=== PATIENT | female | born 1940 | race Caucasian/White ===

== ENCOUNTER 2016-07-30 10:01 | Inpatient (IN) | payer MEDICARE, BC ==
[2016-07-30] MEDS ORDERED: TENORMIN25 M1 PO (10:15)
[2016-07-30 10:58] LABS: BASO % 0.1 % (0-2); HCT-HEMATOCRIT 44.6 % (34.0-49.0); HGB-HEMOGLOBIN 15.3 gm/dl (12.0-15.5); IMMATURE GRANULOCYTES ABSOLUTE 0.11 tho/cmm (0-0.03); IMMATURE GRANULOCYTES PERCENT 0.6 % (0-0.3); LYMPH % 3.5 % (20-45); LYMPH ABSOLUTE COUNT 0.6 tho/cmm (0.8-4.5); MCHC MEAN CORPUSCULAR HGB CONC 34.3 % (32.0-36.0); MCV (MEAN CELL VOLUME) 84.6 fl (82.0-96.0); MEAN PLATELET VOLUME 10.3 cmc (9.4-12.4); MONO % 4.7 % (0-12); MONOCYTE ABSOLUTE COUNT 0.8 tho/cmm (0.0-1.2); NEUTROPHIL ABSOLUTE COUNT 15.5 tho/cmm (1.6-8.0); NEUTROPHIL-AUTOMATED 15.5 tho/cmm (1.6-8.0); NEUTROPHILS % 91.1 % (40-80); PLATELET COUNT 184 tho/cmm (150-450); RED BLOOD COUNT 5.27 mil/cmm (4.00-5.20); RED CELL DISTRIBUTION WIDTH 13.7 % (12.4-16.4)
[2016-07-30 11:22] LABS: ANION GAP 17 mmol/L (0-20); BLOOD UREA NITROGEN 21 mg/dl (6-24); CALCIUM 10.3 mg/dl (8.5-10.5); CARBON DIOXIDE-VENOUS 22 mmol/L (22-32); CHLORIDE 100 mmol/l (96-110); CREATININE 1.15 mg/dl (0.50-1.10); GLUCOSE 269 mg/dL (70-110); POTASSIUM 3.9 mmol/L (3.7-5.1); SODIUM 135 mmol/L (135-145); eGFR VALUE FOR BLACK 55 mL/Min
[2016-07-30 14:41] LABS: C-REACTIVE PROTEIN 30.1 mg/dl (0-0.9)
[2016-07-30 14:48] LABS: PROCALCITONIN 0.46 ng/ml (0.05-0.09)
[2016-07-31 08:02] LABS: HCT-HEMATOCRIT 39.7 % (34.0-49.0); HGB-HEMOGLOBIN 13.6 gm/dl (12.0-15.5); IMMATURE GRANULOCYTES ABSOLUTE 0.04 tho/cmm (0-0.03); IMMATURE GRANULOCYTES PERCENT 0.3 % (0-0.3); LYMPH % 2.9 % (20-45); LYMPH ABSOLUTE COUNT 0.4 tho/cmm (0.8-4.5); MCH (MEAN CORPUSCULAR HGB) 29.1 pg (28.0-32.0); MCHC MEAN CORPUSCULAR HGB CONC 34.3 % (32.0-36.0); MCV (MEAN CELL VOLUME) 84.8 fl (82.0-96.0); MEAN PLATELET VOLUME 10.1 cmc (9.4-12.4); MONOCYTE ABSOLUTE COUNT 0.4 tho/cmm (0.0-1.2); NEUTROPHIL ABSOLUTE COUNT 11.8 tho/cmm (1.6-8.0); NEUTROPHIL-AUTOMATED 11.8 tho/cmm (1.6-8.0); NEUTROPHILS % 93.8 % (40-80); PLATELET COUNT 175 tho/cmm (150-450); RED BLOOD COUNT 4.68 mil/cmm (4.00-5.20); RED CELL DISTRIBUTION WIDTH 13.8 % (12.4-16.4); WHITE BLOOD COUNT 12.5 tho/cmm (4.0-10.0)
[2016-07-31 08:16] LABS: ALB/GLOB RATIO 0.6 (0.8-2.0); ALBUMIN 2.7 g/dl (3.5-5.0); ALKALINE PHOSPHATASE 97 U/L (33-138); ALT/SGPT 28 U/L (12-78); ANION GAP 13 mmol/L (0-20); AST/SGOT 21 U/L (10-40); BILIRUBIN,TOTAL 0.5 mg/dl (0-1.5); BLOOD UREA NITROGEN 18 mg/dl (6-24); CARBON DIOXIDE-VENOUS 24 mmol/L (22-32); CHLORIDE 104 mmol/l (96-110); CREATININE 0.99 mg/dl (0.50-1.10); GLUCOSE 257 mg/dL (70-110); SODIUM 137 mmol/L (135-145); eGFR VALUE FOR BLACK 66 mL/Min
[2016-07-31 17:45] LABS: URINE BILIRUBIN NEGATIVE (NEG); URINE BLOOD NEGATIVE (NEG); URINE GLUCOSE (UA) MODERATE (NEG); URINE KETONE NEGATIVE (NEG); URINE LEUKOCYTE ESTERASE NEGATIVE (NEG); URINE NITRITE NEGATIVE (NEG); URINE PROTEIN SMALL (NEG)
[2016-07-31 17:46] LABS: URINE APPEARANCE CLEAR; URINE COLOR YELLOW
[2016-07-31 18:02] LABS: URINE EPITHELIAL CELLS 0-1 /[HPF] (0-10); URINE RBC 0-2 /[HPF] (0-5); URINE WBC 0-2 /[HPF] (0-5)
[2016-07-31 21:37] LABS: URINE PRT/CR RATIO 0.61 Ratio (0.0-0.20); URINE TOTAL PROTEIN-RANDOM 19.1 mg/dl (<11.8)
[2016-08-01 05:56] LABS: BASO % 0.1 % (0-2); HCT-HEMATOCRIT 38.8 % (34.0-49.0); HGB-HEMOGLOBIN 13.4 gm/dl (12.0-15.5); IMMATURE GRANULOCYTES PERCENT 0.6 % (0-0.3); LYMPH % 3.6 % (20-45); LYMPH ABSOLUTE COUNT 0.6 tho/cmm (0.8-4.5); MCHC MEAN CORPUSCULAR HGB CONC 34.5 % (32.0-36.0); MEAN PLATELET VOLUME 10.3 cmc (9.4-12.4); MONO % 4.2 % (0-12); MONOCYTE ABSOLUTE COUNT 0.7 tho/cmm (0.0-1.2); NEUTROPHIL ABSOLUTE COUNT 14.6 tho/cmm (1.6-8.0); NEUTROPHIL-AUTOMATED 14.6 tho/cmm (1.6-8.0); NEUTROPHILS % 91.5 % (40-80); PLATELET COUNT 195 tho/cmm (150-450); RED BLOOD COUNT 4.62 mil/cmm (4.00-5.20); RED CELL DISTRIBUTION WIDTH 13.9 % (12.4-16.4); WHITE BLOOD COUNT 15.9 tho/cmm (4.0-10.0)
[2016-08-01 06:05] LABS: ANION GAP 15 mmol/L (0-20); BLOOD UREA NITROGEN 24 mg/dl (6-24); CALCIUM 8.6 mg/dl (8.5-10.5); CARBON DIOXIDE-VENOUS 22 mmol/L (22-32); CHLORIDE 107 mmol/l (96-110); CREATININE 0.93 mg/dl (0.50-1.10); GLUCOSE 264 mg/dL (70-110); POTASSIUM 3.7 mmol/L (3.7-5.1); SODIUM 140 mmol/L (135-145); eGFR VALUE FOR BLACK 71 mL/Min
[2016-08-01 06:39] LABS: ESR-ERYTHROCYTE SED RATE 49 mm/hr (0-30)
[2016-08-03 06:27] LABS: HCT-HEMATOCRIT 39.6 % (34.0-49.0); HGB-HEMOGLOBIN 13.7 gm/dl (12.0-15.5); MCH (MEAN CORPUSCULAR HGB) 28.9 pg (28.0-32.0); MCHC MEAN CORPUSCULAR HGB CONC 34.6 % (32.0-36.0); MCV (MEAN CELL VOLUME) 83.5 fl (82.0-96.0); MEAN PLATELET VOLUME 10.2 cmc (9.4-12.4); NEUTROPHIL-AUTOMATED 10.5 tho/cmm (1.6-8.0); PLATELET COUNT 223 tho/cmm (150-450); RED BLOOD COUNT 4.74 mil/cmm (4.00-5.20); RED CELL DISTRIBUTION WIDTH 13.8 % (12.4-16.4); WHITE BLOOD COUNT 14.6 tho/cmm (4.0-10.0)
[2016-08-03 06:30] LABS: BASO % 0.5 % (0-2); BASO ABSOLUTE COUNT 0.1 tho/cmm (0.0-0.2); EOS % 0.1 % (0-7); IMMATURE GRANULOCYTES ABSOLUTE 1.23 tho/cmm (0-0.03); IMMATURE GRANULOCYTES PERCENT 8.4 % (0-0.3); LYMPH ABSOLUTE COUNT 1.5 tho/cmm (0.8-4.5); MONO % 9.2 % (0-12); MONOCYTE ABSOLUTE COUNT 1.3 tho/cmm (0.0-1.2); NEUTROPHIL ABSOLUTE COUNT 10.5 tho/cmm (1.6-8.0); NEUTROPHILS % 71.8 % (40-80)
[2016-08-03 06:39] LABS: ANION GAP 14 mmol/L (0-20); BLOOD UREA NITROGEN 21 mg/dl (6-24); CALCIUM 8.2 mg/dl (8.5-10.5); CARBON DIOXIDE-VENOUS 26 mmol/L (22-32); CHLORIDE 102 mmol/l (96-110); GLUCOSE 227 mg/dL (70-110); POTASSIUM 3.5 mmol/L (3.7-5.1); SODIUM 138 mmol/L (135-145); eGFR VALUE FOR BLACK 85 mL/Min
[2016-08-03] MEDS ORDERED: TYLENOL325 M2 PO (16:30)
[2016-08-03] MEDS ORDERED: MUCINEX600 M1 PO (16:31)
[2016-08-03] MEDS ORDERED: DEXAMETHASONE2 M1 PO (16:37)
[2016-08-03] MEDS ORDERED: MUPIROCIN22 G2 (16:41)
[2016-08-03] MEDS ORDERED: CUBICIN500 MG IV (16:43)
[2016-08-03] MEDS ORDERED: HYDROCODON-ACE1 EA16 PO (16:44)
[2016-08-03] MEDS ORDERED: GLUCOPHAGE500 M3 PO (16:47)
[2016-08-03] MEDS ORDERED: COLACE100 M1 PO (16:49)
== END 2016-08-03 17:50 | disposition home health service (06) | DRG 872 ==
LOC: EDMED 10:01 → EMR2 14:13 → 5EB 16:50
PROVIDERS: Emergency Medicine; Family Medicine; Hospitalist; ADMIT Family Medicine
PROC: 02HV33Z Insertion of Infusion Device into Superior Vena Cava, Percutaneous Approach (ICD-10-PCS; principal; 2016-08-03)
DX: A41.01 Sepsis due to Methicillin susceptible Staphylococcus aureus (principal); N17.9 Acute kidney failure, unspecified; E11.65 Type 2 diabetes mellitus with hyperglycemia; J39.1 Other abscess of pharynx; Z87.891 Personal history of nicotine dependence; R09.02 Hypoxemia; I10 Essential (primary) hypertension; Z88.0 Allergy status to penicillin; M72.8 Other fibroblastic disorders
CPT/HCPCS: A9577; C1751; G8978-GO-CI; G8978-GP-CI; G8979-GO-CI; G8979-GP-CI; G8980-GO-CI; G8987-GO-CI; G8988-GO-CI; G8989-GO-CI; J0131; J0690; J0692; J0878; J1100; J1815; J1956; J2270; J2405; J3360; J3370; J7030; J7050; Q9967